=== PATIENT | male | born 1940 | race Caucasian/White ===

== ENCOUNTER 2021-12-23 17:42 | Inpatient (IN) | payer MEDICARE, OTHER ==
[~2021-12-23] VITALS: Ht 172.7 cm; Wt 84.7 kg
[~2021-12-23 17:42] MED LIST: ALEVE220 MG PO; BAYER CHEWABLE81 MG PO; HYZAAR 100-251 EACH PO; METOPROLOL SUCC25 MG PO; RANITIDINE HCL300 MG PO; SIMVASTATIN20 MG PO; TERAZOSIN HCL1 MG PO
[2021-12-23] MEDS ORDERED: ISOSORBIDE MONO30 MG PO (18:46)
--- NOTE | 2021-12-24 04:27 | NUR ---
URINE AND MRSA SAMPLES COLLECTED. PT DENIES PRODUCTIVE COUGH AT THIS TIME, RESPIRATORY CULTURE STILL NEEDED. SPECIMAN CUP LEFT AT BEDSIDE AND PT INSTRUCTED TO NOTIFY RN IF ABLE TO PROVIDE SPUTUM SAMPLE. SCDs APPLIED PER ORDERS. OXYGEN WEANED FROM 4L TO 3L OXYMASK AND MAINTAINING O2 SATS AT 92% WHILE SLEEPING. WILL CONTIUE TO MONITOR AND TITRATE O2 INDICATED.
--- NOTE | 2021-12-24 05:04 | NUR ---
PT NOTED TO DESAT TO 83%. PT FOUND TO HAVE REMOVED O2 DURING SLEEP. O2 REPLACED AND SATS NOW MAINTAINED AT 91%.
--- NOTE | 2021-12-24 07:30 | NUR ---
RECEIVED REPORT AT 0700. PT RESTING IN BED. NO NEW CONCERNS NOTED AT THAT TIME.
--- NOTE | 2021-12-24 09:00 | NUR ---
ALL LOBES ARE COARSE AT THIS TIME. PT DENIES SOB. ABD SOUNDS PRESENT. NO PERIPH. EDEMA NOTED. PT OVERALL SEEMS IN GOOD SPIRITS. PT IS DUE TO VOID. WILL DO BLADDER SCAN IN A LITTLE WHILE.
--- NOTE | 2021-12-24 09:59 | NUR ---
PT STILL HAS NOT VOIDED SINCE THE NAIL GALVANIZER HOURS. IF I RECALL CORRECTLY IT WAS AROUND 0300 PT VOIDED LAST. BLADDER SCAN SHOWED 450MLS PRESENT. PT STATED THAT HE WILL TRY TO VOID IN THE NEXT 30MIN. MD WESTON AWARE.
--- NOTE | 2021-12-24 10:10 | NUR ---
PT VOIDED 450MLS AT THIS TIME. O2 NOW AT 4.5L VIA OXYMASK. MAY NEED C-PAP.
--- NOTE | 2021-12-24 11:51 | NUR ---
THIS RN TO ROOM TO ASSIST WITH PT CARE PER ZOILA MITCHELL. PT RESTING IN BED TALKING WITH FAMILY ON PHONE NO SHORTNESS OF BREATH NOTED. PT TELLS THIS RN STORIES ABOUT HIS PAST MEDICAL CARE WITH NO NEED TO STOP BETWEEN WORDS OR SENTENCES TO CATCH HIS BREATH. PT DENIES PAIN AND NAUSEA. PT REPORTS HE WANTS HIS LUNCH " SOON POSSIBLE." BLOOD SUGAR TAKEN. LUNCH DELIVERED. PT TRANSFERED TO 6L O2 BY NC. TOELRATING WELL WITH OXGYEN SATURATIONS ABOVE 90%. PT UP TO CHAIR FOR LUNCH WITH STAND BY ASSIST, AWARE AND STATES OK FOR PT TO [place]. PT MAINTAINS OXGYEN SATURATIONS ABOVE 90% WHILE UP TO CHAIR AND DURING TRANSFER. RR = 18. IV ASSESSED, WNL. BRISK BLOOD RETURN NOTED. IV FLUSHED AND SALINE LOCKED PER PROTOCOL, ALCOHOL CAP APPLIED. LUNG SOUNDS CLEAR IN UPPER LEFT LOBE, CORSE IN UPPER RIGHT LOBE. CRACKES NOTED THROUGHOUT LOWER LOBES OF LUNGS. I.S PROIVDED, EDUCATION DONE, PT DEMONSTRATES USE OF I.S REACHING 1000ML X5. PT DEMONSTRATES USE OF CORNET X5 WELL. PRONING PROTOCOLS AND BEINFITS DISCUSED WITH PT. PT REQUESTS TO REMAIN IN CHAIR AND STATES HE IS WILLING TO PRONE "A LITTLE LATER." BOWEL TONES HYPERACTIVE AT THSI TIME. PT DENIES DIARRHEA OR NEED TO GO. PT DENIES ABDOIMAL PAIN. PT REPORTS HE URINATED "ARROUND 9 O'CLOCK." PT REPORTS URINATION WAS NORMAL FOR HIM. PT DENIES LOSS OF SENSE OF TASTE OR SMELL. NO ADDITIONAL REQUESTS OR COMPLAINTS AT THIS TIME. ICE WATER REFILLED. CALL LIGHT WITHIN REACH.
--- NOTE | 2021-12-24 13:00 | NUR ---
THIS RN TO ROOM TO CHECK ON PT. PT RESTING IN CHAIR WITH EYES CLOSED. RESPIRATIONS EVEN AND UNLABORED. OXGYEN SATURATION 92% ON 6L O2 BY NC. NO ADDITIONAL NEEDS AT THIS TIME. CALL LIGHT WITHIN REACH. PTS PRIMARY RN UPDATED.
--- NOTE | 2021-12-24 14:39 | NUR ---
REPORT GIVEN TO ERICK GUTIERREZ RN AT THIS TIME. PT WILL TRANSFER TO MS #[id number]. V/S YENI.
--- NOTE | 2021-12-24 15:10 | NUR ---
PATIENT MOVED TO ROOM #116 BY ZOILA FARIA. PATIENT VS STABLE ON 6L/NC. PATIENT EAGER TO CALL FAMILY HE A BUNCH OF MISSED CALLS. PATIENT DENIES ANY CURRENT CARE NEEDS. CALL LIGHT IN REACH AND BED IN LOW POSITION.
--- NOTE | 2021-12-24 15:41 | NUR ---
RESTING IN BED QUIETLY TALKING ON HIS CELL PHONE. PATIENT REMAINS ON 6L/NC AND SATS OF 94%. PATIENT HAS NO CURRENT CARE NEEDS. CALL LIGHT TAM MENSAH.
--- NOTE | 2021-12-24 15:59 | NUR ---
CALLED PATIENT'S DAUGHTER MADELYN AND GAVE HER AN UPDATE ON PATIENT'S CASE. ALL QUESTIONS ANSWERED AND SHE WILL CALL BACK TO CHECK IN LATER. PATIENT STILL TALKING TO ANOTHER FAMILY MEMBER ON HIS CELL PHONE IN HIS ROOM. CALL LIGHT IS IN REACH.
--- NOTE | 2021-12-24 17:57 | NUR ---
PATIENT'S DINNER HEATED UP BY THIS RN AND GIVEN TO PATIENT WITH EVENING INSULIN DOSE FOR SLIDING SCALE. PATIENT ON 6L/NC HIGH FLOW AND AT 90% SAT AT THIS TIME. VS REMAIN STABLE. PATIENT DENIES ANY CARE NEEDS AT THIS TIME. CALL LIGHT IS IN REACH. PATINE WILL CALL IF HE NEEDS ANYTHING.
--- NOTE | 2021-12-24 18:50 | NUR ---
PATIENT IN BED RESTING WITH EYES CLOSED. VITALS AND I&O'S CHARTED. CALL LIGHT IN REACH. NO FURTHER NEEDS AT THIS TIME.
--- NOTE | 2021-12-24 19:40 | NUR ---
BEDSIDE REPORT FROM ERICK Werner RN, PT RESTING IN BED EYES CLOSED RR EVEN AT 22 BPM. OM HIGH FLOW N.C. 6L. CURRENTLY 93% OXYGEN SATURATION AT THIS TIME.
--- NOTE | 2021-12-24 21:45 | NUR ---
PT RESTING IN BED, HE SAT UP FOR ASSESSMENT, HE REPORTS HE DOES NOT HAVE ANY PAIN, AND DOES NOT NEED ANY COUGH MEDICATIONS. HE REPORTS HE DOES NOT FEEL SHORT OF BREATH, HE SAID HE IS FRUSTRATED HIS IS AT HOME AND SHE IS NOT GETTING ALONE WITH THEIR DAUGHTER THAT IS TRYING TO MONITOR HEALTH NEEDS SHE WAS JUST IN THE HOSPITAL ALSO.
--- NOTE | 2021-12-24 23:32 | NUR ---
CCU CALLED IN REGARDS TO OXYGEN DESATURATION INTO 80'S, THIS RN INTO PT ROOM TO ASSESS, PT HAD N.C. OUT OF HIS NARES, HE SAID THAT THEY ARE HURTING AND NOT STAYING IN. PT SWITCHED TO REGULAR N.C. AT 6L, HE SAID THAT IS MUCH MORE COMFORTABLE. HIS OXYGEN SATURATION IS 94% AT THIS TIME
--- NOTE | 2021-12-25 01:12 | NUR ---
PT UP TO BATHROOOM TO HAVE BM AND VOID, STANDBY ASSIST. TOLERATED ACTIVITY WELL. 94% OXYGEN SATURATION ON 6L N.C.
--- NOTE | 2021-12-25 03:50 | NUR ---
PT ALERT AND ORIETNED, HE HAS NOT BEEN ABLE TO SLEEP, HE FEELS THE STEROID MEDICATION IS THE CAUSE, HE VERBALIZED HE PLANS TO REFUSE THIS IN THE AM, HE WOULD LIKE TO BE SEEN BY EARLY POSSIBLE. HE REPORTS HE IS FEELING AGGITATED AND STEROIDS CAUSE THAT.
--- NOTE | 2021-12-25 05:25 | NUR ---
PT HAS BEEN AWAKE OVER SHIFT, HE HAS BEEN FRUSTRATED AT THIS, HE FEELS IT IS TO DO WITH STEROIDS, HE HAS ALSO BEEN HAVING MULTIPLE PHONE CALLS FROM FAMILY, HE ALSO SAID HE IS VERY WORRIED ABOUT HOW HIS IS DOING AT HOME. HE HAS BEEN UP TO BATHROOM STANDBY ASSIST TO BATHROOM TO VOID AND HAVE LIQUID BM. HE HAS BEEN 94% OXYGEN SATURATION MOST OF SHIFT ON 6L REGULAR N.C. HE DID NOT LIKE THE HIGH FLOW CANNULAS, YANIQUE Pitt AGREE THIS IS OK. PT HAS NOT REPORTED ANY SIGNIFICANT COUGH, NO SOB.
--- NOTE | 2021-12-25 08:18 | NUR ---
THIS RN RECEIVED SHIFT REPORT FROM ZOILA PRICE AND PATIENT RESTING QUIETLY IN BED AT THIS TIME ON 6L/NC WITH O2 SAT=94%, EYES ARE CLOSED, AND CALL LIGHT IN REACH. NO CURRENT CARE NEEDS NOTED AT THIS TIME.
--- NOTE | 2021-12-25 09:17 | NUR ---
PATIENT RESTING QUIETLY IN BED AND IN NO VISUAL DISTRESS. PATIENT REMAINS ON 6L/NC WITH SATS AT 94%. PATIENT ATE ABOUT 30% OF HIS BREAKFAST. AM MEDS GIVEN, ASSESSMENT COMPLETE, VS WNL, AND I+O RECORDED. ICE WATER REFILLED AND URINAL EMPTIED. PATIENT DENIES ANY OTHER CARE NEEDS AT THIS TIME. CALL LIGHT IS IN REACH.
--- NOTE | 2021-12-25 11:00 | NUR ---
PATIENT REMAINS ON 6L/NC AND SATS ARE AT 92%. PATIENT BUSY TALKING ON THE PHONE AND DENIES ANY CARE NEEDS AT THIS TIME. CALL LIGHT IS IN REACH.
--- NOTE | 2021-12-25 13:15 | NUR ---
THIS RN WENT IN TO GIVE PATIENT HIS INSULIN. PATIENT FRUSTRATED BECAUSE HE FEELS LIKE HE IS BEING IGNORED. PATIENT SAYS,"I'VE ONLY SEEN PEOPLE A FEW TIMES TODAY AND STILL HAVE NOT SEEN THE DOCTOR. MY HAS BEEN ADMITTED TO THE HOSPITAL AND I DON'T KNOW WHAT IS GOING ON." PATIENT VERY ANXIOUS. FOUND OUT WHAT I COULD ABOUT HIS AND TRIED TO REASSURE HIM, PATIENT WAS APPRICIATIVE. INFORMED THE PATIENT HAS BEEN VERY BUSY WITH ADMISSIONS AND HE IS DOING ROUNDS QUICKLY HE CAN. PATIENT'S ICE WATER REFILLED AND TEMP IN ROOM TURNED DOWN PATIENT HAD C/O ROOM BEING TO WARM. PATIENT ALSO SAIS,"I'M DRY A POPCORN FART. HOW COME I'M NOT GETTING STUFF IN MY IV AND THEY ARE EXPECTING ME TO DRINK MY FLUIDS." INFORMED HIM HIS LABS AND CONDITION DID NOT WARRENT IV FLUIDS AT THIS TIME, AND SINCE HE IS ABLE TO DRINK THAT IS THE PREFERED WAY FOR HIM TO HYDRATE. PATIENT ADMITS,"I'M SORRY I'M SO GRUMPY." REASSUSRE PATIENT IT JUST TAKES TIEM TO GET BETTER WITH THE COVID AND HE NEEDS TO BE PATIENT WITH HIS BODY. PATIENT VERALIZED UNDERSTANDING. CALL LIGHT IS IN REACH.
--- NOTE | 2021-12-25 15:21 | NUR ---
PT CALL LIGHT ON. PT REPORTS HE NEEDS ASSISTANCE UP TO RESTROOM HIS LINES ARE TANGLED. THIS RN TO ROOM. EXTENTION TUBING ADDED TO OXGYEN TUBING. PT UP TO RESTROOM WITH STAND BY ASSIST. PT HAS MEDIUM FORMED BOWEL MOVEMENT. OXGYEN DROPS TO 78% ON 6L WITH ACTIVITY. HIGH FLOW NC PLACED AND O2 INCREASED TO 15L FOR ACTIVITY. OXYGEN SATRUATIONS CLIB TO 90%. STADN BY ASSIST. BACK TO BED. PT WEANED TO 6L O2 BY NC. RR = 40 WITH ACTIVITY, SLOWS TO 24 WITH REST. PT RESTING ON RIGHT SIDE. OXGYEN SATRATION ABOVE 90% ON 6L O2 BY NC. NO ADDITONAL REQUESTS OR COMPALINTS. CALL LIGHT WITHIN REACH. BED RAILS UP.
--- NOTE | 2021-12-25 15:50 | NUR ---
PATIENT IV FLUIDS HAVE BEEN STARTED BY THIS NURSE AT 85MLS/HR AND POTASSIUM GIVEN BY THIS RN. LUNG SOUNDS STILL WITH COARSENESS, CRACKLES ,AND DIMINISHED. PATIENT REMAINS ON 7L/NC FROM GETTING UP TO THE RESTROOM AND SATS ARE 92%. PATIENT DENIES ANY OTHER CARE NEEDS AT THIS TIME. CALL LIGHT IS IN REACH.
--- NOTE | 2021-12-25 17:40 | NUR ---
ANABEL ARAGON IN THE ROOM GETTING VS AND PATIENT O2 SATS ARE 80%. THIS RN WENT AND TURNED O2 UP TO 10L/NC HIGH FLOW AND HAVE MANAGED TO GET THE PATIENT BACK TO O2 SAT OF 90-91%. PATIENT GOT WINDED WITH DINNER AND ONLY ATE ABOUT 15%. PATIENT JUST REALLY TIRED AND PM MEDS GIVEN. CALL LIGHT IS IN REACH AND PATIENT WILL CALL IF HE NEEDS ANYTHIG ELSE.
--- NOTE | 2021-12-25 19:44 | NUR ---
SHIFT REPORT FROM ERICK Werner RN, HE HAS REQUIRED INCREASE OXYGEN OVER DAYSHIFT, HE IS VERY ANXIOUS IN REGARDS TO HIS IN HOSPITAL. PT HAD MULTIPLE COMPAINTS IN REGARDS TO DIETARY AND EXPECTATIONS OF CARE. LESLIE RN GAVE EDUCAITONS AND UPDATED IN REGARDS TO ALL CONCERNS AND CARE PLAN
--- NOTE | 2021-12-25 20:01 | NUR ---
PT RESTING IN BED, ALERT AND ORIENTED, NO REQUESTS AT THIS TIME.
--- NOTE | 2021-12-25 21:15 | NUR ---
PT RESTING IN BED ON ENTRY, HE REQUESTED TO USE BATHROOM, BEDSIDE COMMODE PROVIDED, OXYGEN TURNED UP TO 13L FOR ACTIVITY, PT DESATURATED TO 83% AT ONE POINT RECOVERED WITH REST, TITRATED BACK TO 10L HIGH FLOW N.C. 92% OXYGEN SATURATION. HE IS PLEASANT THIS EVENING, COOPERATIVE WITH CARE. ASSESSMENT AMD MEDS PASS COMPLETE.
--- NOTE | 2021-12-26 00:46 | NUR ---
PT RESTING QUIETLY IN BED ON RIGHT SIDE, EYES CLOSED RR 22 BPM, NO DISTRESS NOTED 94% OXYGEN SATURATION ON 12L PER TELEMETRY HIGH FLOW N.C.
--- NOTE | 2021-12-26 01:45 | NUR ---
PATIENT CALLED TO USE THE BATHROOM. PATIENT'S TRIED TO GET UP BUT THEN PATIENT LAY DOWN BACK STATED I NEED TO LIE DOWN AND CATCH MY BREATH. AFTER 5 TO 10 MINS. PATIENT ABLE TO GET UP TO BEDSIDE COMMODE AND VOIDED 300ML. PATIENT IS BACK IN BED. RT AND PRIMARY RN ALBERT CAME INTO THE ROOM. RT STATED PATIENT HAS TO HAVE NON REBREATHER WHEN GETTING UP OR MOVING.
--- NOTE | 2021-12-26 02:11 | NUR ---
PT UP TO BEDSIDE COMMODE WITH ANABEL WANG. PT DESATURATED ON 12L HIGH FLOW TO 60'S, PT PLACED ON NONREBREATHER OVER N.C. AT FULL OPEN TO RECOVER TO 91%. PT NOW RESTING IN BED 90% ON 15L HIGH FLOW N.C.
--- NOTE | 2021-12-26 04:08 | NUR ---
PT RESTING QUIETLY IN BED EYES CLOSED RR 22BPM, 92% ON 15L NON-REBREATHER HIGH FLOW N.C.
--- NOTE | 2021-12-26 05:04 | NUR ---
PT HAS SLEPT WELL OVER SHIFT, HE HAS BEEN UP TWICE TO BEDSIDE COMMODE, SECOND TIME HE DESATURATED TO THE 60'S, NON REBREATHER AT 15L PLACED OVER HIGH FLOW N.C. AT 15L FOR RECOVERY, PT RECOVERED WELL AT REST. PLAN FOR GOING FORWARD IS TO PLACE NON-REBREATHER OVER N.C. WHEN PT UP TO BEDSIDE COMMODE. HE REMAINS NOW ON 15L HIGH FLOW N.C. TO MAINTAIN GREATER THAN 90% OXYGEN SATURATION. HE DID EAT 2 CUPS OF YOGURT AND PUDDING EARLY IN SHIFT.
[2021-12-26] MEDS ORDERED: VALSARTAN320 MG PO (07:44)
[2021-12-26] MEDS ORDERED: ROSUVASTATIN CA40 MG PO (07:44)
[2021-12-26] MEDS ORDERED: CARVEDILOL25 MG PO (07:45)
--- NOTE | 2021-12-26 08:41 | NUR ---
MORNING BLOOD SUGAR DUE. OXYGEN SATURATIONS 77% ON 15L O2 BY HIGH FLOW NC. PT VERY SHORT OF BEATH WITH RR OF 36. NON REBREATHER PLACED OVER 15L NC. OXGYEN SATURATIONS CLIMB TO 94% WITH BOTH IN PLACE. PT REPORTS HE IS FEELING "SCARED." 20 MINUTES SPENT IN CONVERSATION WITH PT TO ANSWER QUESTIONS AND EXPLAIN PLAN OF CARE. PT REPOSITIONED TO SEMIFOWERL POSITION WITH HEAD OF BED ELEVATED TO 38 DEGREES. MORNING CARES DONE. RT TO BEDSIDE WITH VAPOTHERM. VAPOTHERM SET UP AND ON PT WITH SETTINGS OF 40LPM AND 100% FIO2 TO MAINTAIN OXGYEN SATRATIONS ABOVE 90% WHILE EATING. BLOOD SUGAR TAKEN. BREAKFAST DELIVERED. PT DENIES ADDITIONAL REQUESTS OR COMPLAINTS. CALL LIGHT WITHIN REACH. BED RAILS UP. PTS PRIMARY RN UPDATED.
--- NOTE | 2021-12-26 10:05 | NUR ---
PATIENT REMAINS ON VAPOTHERM 40L/MIN FIO2 40%. LUNGS ARE COARSE AND WHEEZES AND CRACLES ALSO HEARD. CONFIRMED WITH THAT ONLY ONE DOSE OF IV FLUIDS HAS BEEN GIVEN SINCE YESTERDAY. PATIENT WILLING TO PRONE AND THIS RN HELPED PATIENT GET INTO THE PRONE POSITION AND HE IS TOLERATING IT WELL AND 02 SATS 100% AT THIS TIME. PATIENT WILL CALL WHEN HE IS READY TO TURN. CALL LIGHT IS IN HIS REACH.
--- NOTE | 2021-12-26 10:20 | NUR ---
Attempted to see pt. He is semiproning. Not awakened. Attemtped to , for assessment. No answer.
--- NOTE | 2021-12-26 11:05 | NUR ---
CHECKED IN WITH PATIENT AND HE HAS BEEN ABLE TO SLEEP AND IS TOLERATING PRONING WELL. LEAVING PATIENT PRONE AT THIS TIME. CALL LIGHT IS IN REACH.
--- NOTE | 2021-12-26 12:07 | NUR ---
PATIENT NOW IN LEFT SIDE POSITION. FSBS DID NOT REQUIRE INSULIN COVERAGE. PATIENT WAS WANTING TO TAKE A BREAK OFF HIS VAPOTHERM. THIS RN INSTRUCTED PATIENT TO THE NEED TO REMAIN ON THE VAPOTHERM TO KEEP HIS O2 LEVELS ADEQUATE. PATIENT VERBALIZED UNDERSTANDING. PATIENT'S LUNCH PLACED ON BEDSIDE TABLE IN REACH AND PATIENT SAID HE WILL,"TRY TO EAT A LITTLE IN AWHILE." CALL LIGHT IS IN REACH. O2 SATS=93%.
--- NOTE | 2021-12-26 12:52 | NUR ---
PATIENT BACK IN SEMI-FWLERS POSITION AND O2 SAT=97%. IV LASIX 20MG GIVEN AND SOME PO K+. PATIET ATE ABOUT 40% OF HIS LUNCH. PATIENT SAYS ONCE HE VOIDS FROM THE LASIX HE WILL CALL TO TURN AND PRONE AGAIN. CALL LIGHT IN REACH. NO OTHER NEEDS AT THIS TIME.
--- NOTE | 2021-12-26 13:23 | NUR ---
PATIENT UP TO BSC AND BACK TO BED, SBA. VITALS AND I&O''S CHARTED. CALL LIGHT IN REACH. NO FURTHER NEEDS AT THIS TIME.
--- NOTE | 2021-12-26 15:50 | NUR ---
PATIENT HAD BEEN RESTING ON HIS LEFT SIDE. NOW UP TO THE BEDSIDE COMMODE AND BACK TO BED 1PSBA AND POSITIONED TO HIS RIGHT SIDE. PATIENT SAYS,"I DO FEEL BETTER," AFTER THE IV LASIX THIS RN GAVE EARLIER AND LUNG SOUNDS ARE BETTER. PATIENT JUST TOOK SOME MORE PO K+. PATIENT DENIES ANY OTHER CARE NEEDS AT THIS TIME. CALL LIGHT IS IN REACH.
--- NOTE | 2021-12-26 17:26 | NUR ---
PATIENT UP TO THE BEDSIDE COMMODE 1PSBA AND BACK TO BED. PATIENT CHOSE TO BE POSITIONED BACK ON HIS RIGHT SIDE. PM MEDS GIVEN AND DINNER SET UP FOR PATIENT. CALL LIGHT IN REACH AND NO OTHER CARE NEEDS NOTED AT THIS TIME. PATIENT ALSO GIVEN A VANILLA ENSURE TO DRINK. SATS 94% ON VAPOTHERM 40L/100%.
--- NOTE | 2021-12-26 19:42 | NUR ---
BEDSIDE REPORT FROM ERICK Werner RN, PT HAS BEEN TRANSITIONED TO VAPOTHERM TODAY HIS OXYGEN DEMANDS HAS INCREASED. HE HAS BEEN COOPERATIVE WITH PRONING. PT IS 94% ON OXIMETRY PER TELEMETRY
--- NOTE | 2021-12-26 21:00 | NUR ---
ANSWERED CALL LIGHT. SBA TO BEDSIDE COMMODE. RT ROGER WAS IN THE ROOM PLACED NON REBREATHER TO PATIENT BEFORE GETTING UP TO THE COMMODE. PATIENT IS BACK IN BED.V/S AND I&O'S DONE AND RECORDED. BLOOD SUGAR CHECK DONE AND CHARTED. PRIMARY RN ALBERT WAS NOTIFIED. PATIENT DENIES FURTHER NEEDS AT THIS TIME. CALL LIGHT WITHIN REACH.
--- NOTE | 2021-12-26 21:09 | NUR ---
PT CALLED FOR ASSISTANCE TO BEDSIDE COMMODE. FELIPE SUSPECT ARTIST SUPERVISOR TO PT ROOM TO ASSIST THIS RN ASKED FELIPE TO PLACE PT ON NON-REBREATHER OVER VAPOTHERM CANNULAS WITH ACTIVITY. PT TOLERATED ACTIVITY WELL, VOIDED AT BEDSIDE COMMODE. FELIPE REPORTED BACK TO THIS RN SHE HAS LEFT THE NON REBREATHER TO RECOVER.
--- NOTE | 2021-12-26 22:03 | NUR ---
THIS RN INTO ROUND. PT RESTING IN BED SUPINE, REMOVED NON REBREATHER AT THIS TIME TO ASSESS OXYGEN LEVELS ON VAPOTHERM ALONE. PT MAINTAINED 90% OXYGEN SATURATION. WITH CONVERSATION PT DESATURATED TO 88% OXYGEN SATURATION, PT EDUCATION PROVIDED TO PT ON PRONING, HE AGREES TO CONTINUE TO PRONE, HE VERBALIZED UNDERSTANDING OF IMPROTANCE OF PRONING AND REASONING. ASSESSMENT AND HS MEDS PASSED. PT HAS NO OTHER REQUESTS AT THIS TIME. FRESH WATER AT BEDSIDE.
--- NOTE | 2021-12-26 22:30 | NUR ---
PT OXYGEN SATURATION AT 86%, THIS RN CHECKED ON PT, HE HAD JUST TURN TO HIS LEFT SIDE. WILL MONITOR FOR RECOVERY AFTER ACTIVITY
--- NOTE | 2021-12-26 23:22 | NUR ---
PT OXYGEN SATURATION AT 91% ON VAPOTHERM 40L AND 85 FIO2.
--- NOTE | 2021-12-27 00:30 | NUR ---
DAUGHTER CAMMIE OF PT, CALLED FOR UPDATE, UPDATE GIVEN, EXPLAINING THAT HE IS REQUIRING A VAPOTHERM AT THIS TIME, EXPLAINED HOW/WHY THIS IS NEEDED. CAMMIE EXPLAINED THAT SHE IS THEIR CAREGIVER, LIVES WITH HER PARENTS AND CARED FOR THEM FOR 10 YEARS NOW, WELL BEING THEIR POA. CAMMIE IS NOTIFIED THAT THEIR CAREGIVER SHE IS ALLOWED TO COME IN AND VISIT HER FATHER TO SUPPORT AND ASSIST IN MAKING DECISIONS NEEDED. SHE SAID SHE WOULD COME TO VISIT IN THE AM.
--- NOTE | 2021-12-27 01:37 | NUR ---
PT NOTED TO HAVE OXYGEN SATURATIONS AT 82-85%, THIS RN INTO PT ROOM TO ASSESS, PT HAD ONE NASAL CANNULA OUT OF NARE. PT THEN VERBALIZED HE NEEDED TO URINATE, PT PLACED ON NON-REBREATHER OVER VAPOTHERM FOR ACTIVITY UP TO BEDSIDE COMMODE. PT DESATURATED TO 86% WITH ACTIVITY DESPITE ADD NON-REBREATHER. PT RECOVERED TO 94% AFTER AT REST, REMOVED NON-REBREATHER AND PT TURNED TO RIGHT SIDE, ON VAPOTHERM 40L AND 85% FIO2 SATURATING 96% NOW
--- NOTE | 2021-12-27 02:18 | NUR ---
PT NOTED TO BE DESATURATED TO 73% OXYGEN SATURATION, THIS RN INTO ASSESS, PT HAD PULSE OXIMETRY PROBE OFF HIS FINGER, REPLACED, PT AT 85%, PT ACTIVITY IN MOVING AROUND IN BED, GIVE PT TIME TO RECOVER, PT THEN CONTINUED TO DESATURATE AFTER 10MIN TO 83%, PT PLACED ON NON-REBREATHER TO RECOVER, DID SO IN LESS THAN 2 MIN. REMOVED NON-REBREATHER HE THEN DESATURATED TO 87%, INCREASED FIO2 ON VAPOTHERM TO 95 FIO2.
--- NOTE | 2021-12-27 03:13 | NUR ---
PT DESATURATED, ON ASSESSMENT CANNULA OUT OF NARE, CALLED AND DISCUSSED WITH R.T. TO PLACE CHEECK GUARDS AND EAR PROTECTORS ON, NEEDING A SOLUTION TO KEEP CANNULAS IN POSTION/IN NARES.
--- NOTE | 2021-12-27 05:12 | NUR ---
PT HAS REQUIRED INCRESAE IN FIO2 OVER SHIFT FROM 85 TO 100, THE VAPOTHERM IS AT 40L 100%FIO2, HE REQUIRES NON-REBREATHER MASK AT >15L OVER VAPOTHERM FOR UP TO COMMODE ACTIVITY. HE HAS BEEN COOPERATIVE WITH CARE, HE HAS HAD DIFFICULTY KEEPING N.C. IN NARES, TUBING IS NOW TAPED IN PLACE. HE HAS BEEN VERY COOPERATIVE WITH PRONING, SIDE TO SIDE AND ON STOMACH OCCASSIONALLY, HE REQUIRES REMINDING. VOIDING Q.S., PRODUCTIVE COUGH.
--- NOTE | 2021-12-27 07:41 | NUR ---
SHIFT REPORT RECEIVED BY THIS NURSE FROM ZOILA PRICE. PATIENT RESTING QUIETLY ON HIS RIGHT SIDE, RESPIRATIONS 28/MIN, PATIENT ON VAPOTHERM 40L/100% FIO2 AND 15L/NRB MASK. O2 SATS=95% AT THIS TIME. NO CURRENT CARE NEEDS NOTED. CALL LIGHT IS IN REACH.
--- NOTE | 2021-12-27 08:04 | NUR ---
PT TRYING TO USE URINAL AND DESATTED INTO THE 60'S CALLED DR DANIEL FOR A HERRING ORDER. CONTINUED TO DESAT WITH MOVEMENT INTO THE 50'S. PLACED HERRING AND EDUCATED PT ON IT. PT TOLERATED WELL. PT ALSO AGREED TO PRONE FOR AWHILE AFTER HERRING PLACED. PT STATES HE WILL DO WHATEVER HE NEEDS TO DO.
--- NOTE | 2021-12-27 08:23 | NUR ---
PATIENT TRIED TO STAND AT BEDSIDE TO USE THE URINAL AND O2 SATS DROPPED TO 30%. THIS RN CAME IN THE ROOM AND HELPED GET PATIENT BACK UP INTO BED ON HIS LEFT SIDE. PATIENT ON VAPOTHERM 40L/100% FIO2 AND 15L/MIN/NRB MASK. AFTER LAYING DOWN SATS SLOWLY CAME BACK UP TO 91%. PATIENT NOT TOLERATING ANY ACTIVITY. CECI ELKINS [id number] CAME IN AND PLACED A HERRING WHICH IS DRAINING MEDIEUM YELLOW URINE. PATIENT EDUCATED BY THIS RN ON THE HERRING AND THAT IF HE HAD TO HAVE A BM WE WILL HAVE TO USE THE BEDPAN AND PATIENT VERBALIZED UNDERSTANDING. PATIENT NEEDED NO AM INSULIN AND AM MEDS GIVE. ANABEL VIVAS IN THE ROOM ASSISTING THIS RN AND WE JUST HELPED PATIENT TO PRONE WITH PILLOWS TO THE SIDES TO TRY AND KEEP HIM FROM TURNING BACK. PATIENT UNDERSTANDS WHY HE NEEDS TO PRONE. PATIENT HAS NO OTHER CARE NEEDS IN THE ROOM AT THIS TIME AND CALL LIGHT IS IN REACH.
--- NOTE | 2021-12-27 09:01 | NUR ---
PATIENT KEEPS DROPPING HIS SATS INTO THE 80'S HE IS HAVING A HARD TIME KEEPING HIS NRB MASK ON OVER THE VAPOTHERM SO THIS RN KEEPS GOING INOT THE ROOM TO PLACE BACK ON. JUST CAME OUT FROM VISITING WITH THE PATIENT AND HE IS GOING TO ORDER SOMETHING FOR ANXIETY. CPAP WAS DISCUSSED WITH AND THE PATIENT BY THIS RN AND PATIENT HAS AGREED TO TRY IT. SATS ARE HOLDING AT 91% AT THIS TIME. CALL LIGHT IN REACH AND PATIENT IS NOW ON HIS LEFT SIDE.
--- NOTE | 2021-12-27 09:30 | NUR ---
Called and spoke with daughter, Natividad. She will be in shortly. Updated pt is having increase respiratory distress and requiring NRB mask.
--- NOTE | 2021-12-27 10:30 | NUR ---
PATIENT CALLED TO USE BED PAIN WHICH HE DID WITHOUT ANY RESULT. PATIENT REPOSITIONED TO HIS RIGHT SIDE FORM HIS LEFT SIDE. CPAP AT 10 AND 70% FIO2. 40MG IV LASIX GIVEN WITH SOME PO MEDICATION FOR ANXIETY. PATIENT'S CALL LIGHT IS IN REACH AND HE WILL CALL IF HE NEEDS ANYTHING ELSE. O2 SATS ARE CURRENTLY AT 90%.
--- NOTE | 2021-12-27 10:50 | NUR ---
Spoke with pt and daughter. Pt has difficulty speaking, sob and NRB in place. Daughter and pt discussing comfort care for mom. Pt stating this is wifes wishes. Pt cont. to want to have full Code treatment. Per daughter pt is usually very active. He drives. She lives with him and her mom and assists mom. Pt and daughter plan on pt discharging to home when he is medically cleared. Pt is requiring inceased amts of 02 and will be moved to CCU.
--- NOTE | 2021-12-27 12:38 | NUR ---
REPORT REC'D FROM ERICK CUMMINGS, AND WAITING FOR PATIENT TO TRANSFER TO CCU ROOM 128 AT THIS TIME.
--- NOTE | 2021-12-27 13:05 | NUR ---
PATIENT REPORT HAS ALREADY BEEN GIVEN TO ZOILA BRONSON IN CCU. THIS RN, GALILEA FROM RT, AND CECI ELKINS RN HAVE TRANSPORTED PATIENT TO CCU#[id number] AND ZOILA BRONSON TAKING OVER PATIENT'S CARE.
--- NOTE | 2021-12-27 13:07 | NUR ---
PATIENT ARRIVES TO CCU AT 1245 AND BROUGHT ON CPAP OF 10 AND 70%. PT DESATURATING STILL IN THE MID TO LOW 80s. PT PLACED ON CONSUMER LOAN PROCESSOR AND CPAP TITRATED UP TO 12 AND 100% PER RT. PT HELPED TO REPOSITION TO RIGHT SIDE. PT BREATHING VERY FAST, 40-50 AT THIS TIME. LUNG SOUNDS ARE COARSE CRACKLES THROUGOUT. PT HAS HERRING AND EMPTIED FOR 1300 ML. PT AFTER 15 MINUTES ROLLS BACK TO HIS BACK AND SP02 MONITOR OFF FINGER. STICKER PROBE TO BE PLACED. TEMP 99.3 AXILLARY UPON ARRIVAL. CONTINUE TO MONITOR.
--- NOTE | 2021-12-27 14:25 | NUR ---
DR. DANIEL CALLED AND UPDATED ON PATIENT'S BREATHING RATE OF 40-50s. LABS ORDERED AND DRAWN FROM NEW IV SITE IN LEFT FOREARM. PT TOLERATED WELL. PT ANSWERING ORIENTATION QUESTIONS CORRECTLY AT THIS TIME, BUT STILL SAYING SOME THINGS THAT DON'T FIT THE PICTURE, LIKE BEING CONCERNED ABOUT A COMPUTER AT THIS TIME.
--- NOTE | 2021-12-27 15:26 | NUR ---
PT BREATHING IN THE 50S. UNALBE TO GET IN A COMFORTABLE POSITION IN BED, STATES HE IS ANXIOUS. VERBAL ORDER FOR 2 MG IV HALDOL RECIEVED. HALDOL GIVEN ANED PRECEDEX DRIP INITIATED AT 0.1 MCG/KG/HR. THIS RN REMAINS AT PT BEDSIDE AT THIS TIME.
--- NOTE | 2021-12-27 15:40 | NUR ---
DR DANIEL UPDATED ON PTS CONTINUED RESPIRATORY RATE IN THE 40S-50. PROGRAMMER NUMERICAL CONTROL UPDATED AND PLAN ESTABLISHED TO INTUBATE PT AT THIS TIME.
--- NOTE | 2021-12-27 16:04 | NUR ---
DAUGHTERS IN ROOM TO VISIT WITH PT. PT FAMILY UNDERSTANDS PLAN TO INTUBATE AND SHIP PT AT THIS TIME.
--- NOTE | 2021-12-27 16:30 | NUR ---
PT INTUBATED AT 1626. CHEST XRAY COMPLETED AT THIS TIME.
--- NOTE | 2021-12-27 16:45 | NUR ---
PT RESTING ON VENT. HEART RATE AT 100 BPM, SPO2 = 95% ON CURRENT VENT SETTINGS. BREATH SOUNDS EQUAL ON BOTH SIDES. PROPOFOL INFUSING AT 10 MCG/KG/MIN. THIS RN REMAINS AT BEDSIDE.
--- NOTE | 2021-12-27 17:03 | NUR ---
CALLED [facility] TO CHECK BED AVAILABILITY, THEY WILL HAVE A BED AVAILABLE AT 1930, BUT CANNOT GIVE BED CONFIRMATION UNTIL THEN. CHART IS PRINTED AND IMAGES HAVE BEEN PUSHED TO [facility]. THEY WILL BE CALLING HERE THEN.
--- NOTE | 2021-12-27 17:36 | NUR ---
FENTANYL DRIP INITIATED AT 100 MCG/HR. PRECEDEX DRUP CONTINUES TO INFUSE AT 0.2 MCG/KG/HR AND PROPOFOL INFUSING AT 20 MCG/KG/MIN. PT AT A RASS SCORE OF -2 AT THIS TIME. SPO2 = 93% ON CURRENT VENT SETTINGS. FINE CRACKLES NOTED IN RIGHT LOWER AND MID AIR PARRISH, ALL OTHER AIR SPACES SOUND CLEAR UPON AUSCULTATION. THIS RN REMAINS AT BEDSIDE.
--- NOTE | 2021-12-27 18:00 | NUR ---
PT BLOOD PRESSURE 69/54 (60). DISCUSSED WITH DR DANIEL. PROPOFOL DECREAED TO 10 MCG/KG/MIN AT THIS TIME. FENTYNAL REMAINS AT 100 MCG/HR. PRECEDEX NOW ON STAND BY. THIS RN AT REMAINS AT BEDSIDE.
--- NOTE | 2021-12-27 18:38 | NUR ---
PT REMAINS HYPOTENSIVE. BLOOD PRESSURES SYSTOLICALLY IN THE 70S. DR DANIEL UPDATED. 20 GAUGE IV STARTED IN LEFT AC. NOREPINEPHRINE DRIP INITIATED AT THIS TIME AT 4 MCG/MIN. PROPOFOL CONTINUES TO INFUSE AT 10 MCG/KG/MIN AND FENTYNAL INFUSING AT 100 MCG/HR. PT DIAPHORETIC. AXILLARY TEMPERATURE OF 99.7
--- NOTE | 2021-12-27 18:51 | NUR ---
PT FAMILY TOOK HOME PTS DENTURES, GLASSES, AND CELL PHONE AT THIS TIME.
--- NOTE | 2021-12-27 19:56 | NUR ---
[facility] CONTACTED, ETA 15 MINUTES
--- NOTE | 2021-12-27 20:02 | NUR ---
MARCELINO FROM [facility] CALLED FOR UPDATED, UPDATED ON [facility] ETA
--- NOTE | 2021-12-27 20:06 | NUR ---
JOHN, FROM [facility], CALLED BACK, ETA IS NOW 2030. STAFF UPDATED ON CHANGE
--- NOTE | 2021-12-27 20:12 | NUR ---
ARRIVED TO SHIFT, RECIEVED REPORT, PT SEDATED AND INTUBATED, SEDATION AND LEVOPHED GTT RUNNING, RESTRAINTS ON PT TO PROTECT LINES AND TUBE, RASS -2, PT SUCTIONED, ORAL CARE PROVIDED, HEAD TO TOE ASSESSMENT COMPLETED, LR FLUID BOLUS BEING GIVEN, [facility] ACCEPTED PT, AWAITING [facility] CREW FOR TRANSPORT
--- NOTE | 2021-12-27 21:24 | NUR ---
[facility] CREW ARRIVED AROUN 2034, ASSESSED PT, ASSESSED MEDICAITONS, RECIEVED REPORT FROM MYSELF. CREW DID NOT WANT RIDDHI PUSH, RIDDHI RETURNED TO PHARMACY BIN. CREW TOOK OVER PATIENT CARE AND MEDICATIONS, ONCE CREW WAS READY PT WAS PLACED ON PORTABLE VENT AND TRANSFERRED TO [facility]. CREW LEFT WITH PT AT 2112, REPORT CALLED TO [facility], REPORT GIVEN TO RICHAR CUMMINGS.
== END 2021-12-27 21:13 | disposition short-term general hospital (02) | DRG 208 ==
LOC: ED 17:42 → CCU 12-24 00:40 → MS 12-24 00:40 → CCU 12-27 13:04
PROVIDERS: ADMIT Internal Medicine; ATTEND Internal Medicine
PROC: 8E0ZXY6 Isolation (ICD-10-PCS; principal; 2021-12-24)
PROC: 3E0333Z Introduction of Anti-inflammatory into Peripheral Vein, Percutaneous Approach (ICD-10-PCS; 2021-12-24)
PROC: 3E033XZ Introduction of Vasopressor into Peripheral Vein, Percutaneous Approach (ICD-10-PCS; 2021-12-24)
PROC: 5A1935Z Respiratory Ventilation, Less than 24 Consecutive Hours (ICD-10-PCS; 2021-12-27)
PROC: 5A09357 Assistance with Respiratory Ventilation, Less than 24 Consecutive Hours, Continuous Positive Airway Pressure (ICD-10-PCS; 2021-12-27)
PROC: 0BH18EZ Insertion of Endotracheal Airway into Trachea, Via Natural or Artificial Opening Endoscopic (ICD-10-PCS; 2021-12-27)
DX: U07.1 COVID-19 (principal); J12.82 Pneumonia due to coronavirus disease 2019; J96.21 Acute and chronic respiratory failure with hypoxia; J15.9 Unspecified bacterial pneumonia; J96.22 Acute and chronic respiratory failure with hypercapnia; I25.10 Atherosclerotic heart disease of native coronary artery without angina pectoris; K21.9 Gastro-esophageal reflux disease without esophagitis; I10 Essential (primary) hypertension; E78.5 Hyperlipidemia, unspecified; I95.81 Postprocedural hypotension; Z98.890 Other specified postprocedural states; Z95.1 Presence of aortocoronary bypass graft; Z87.891 Personal history of nicotine dependence; Z79.82 Long term (current) use of aspirin; Z79.899 Other long term (current) drug therapy
CPT/HCPCS: 31500; 36415; 36600; 71045; 71260; 80048; 80053; 82803; 83735; 83880; 85025; 86140; 87070; 87205; 87449; 87899; 93306; 94002; 94667; 94668; 94760; 94762; 94799; 96374; 96375; 99285-25; A9270; C9803; J0171; J0330; J0456; J0696; J1100; J1630; J1815; J1940; J2001; J2704; J3010; J3480; J7030; J7060; J7121; J8540; Q0177; Q9967; U0003